=== PATIENT | female | born 1980 | race Caucasian/White ===

== ENCOUNTER 2016-10-12 11:12 | Emergency (ER) | payer SELFPAY ==
[2016-10-12 11:21] VITALS: BP 106/76; BMI 22.1
--- NOTE | 2016-10-12 12:01 | DR.GENAD ---
HPI - PCP Primary Care Physician: kenney - Complaint/Symptoms Chief Complaint Doctors Comments: Patient presents with complaint of hoarseness for two weeks. Denies fever, vomitng or diarrhea. Chief Complaint:: patient stated her lymphnodes have been swollen for about 2 weeks. she stated she has not seen a doctor for her lymphnodes. Self Treatment fo Chief Complaint: patient stated she did smoke some thc about 2 weeks ago. 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 - Family History History of Family Medical Conditions: Yes Family Medical History: Diabetes Mellitus, Cancer - Social History Does patient currently use any type of tobacco product: Yes Have you used tobacco products in the last 12 months: Yes Type of Tobacco Use: Cigarettes How many years tobacco product used: 15 Does any household member use tobacco: No Alcohol Use: None Do you use any recreational Drugs:: No Lives With: Family Lives Where: Home - infectious screening In the last 2 months have you had wt loss of >10#?: NO Have you had fever, night sweats or hemotysis?: No Have you traveled outside the country in the last 6 months?: No Isolation: Standard ROS - Review of Systems Constitutional: No Symptoms Reported. negative: Chills Eyes: No Symptoms Reported ENTM: No Symptoms Reported Respiratoy: Non-Productive Cough Cardiovascular: No Symptoms Reported Gastrointestinal/Abdominal: No Symptoms Reported Genitourinary: No Symptoms Reported Neurological: No Symptoms Reported Musculoskeletal: No Symptoms Reported Integumentary: No Symptoms Reported Hematologic/Lymphatic: No Symptoms Reported Endocrine: No Symptoms Reported Psychiatric: No Symptoms Reported All Other Systems: Reviewed and Negative PE - Vital Signs Vitals: Temperature 97.7 F Pulse Rate 64 Respiratory Rate 16 Blood Pressure 106/76 O2 Sat by Pulse Oximetry 99 - General Limitations: No Limitations General Appearance: Alert, In No Apparent Distress - Head Head Exam: Normal Inspection, Atraumatic - Eyes Eye exam: Normal Appearance, PERRL, EOMI - ENT ENT Exam: Normal Exam, Normal Oropharynx, Mucous Membranes Moist TM/Canal Exam: Bilateral Normal Nose Exam: Normal Nose Exam. negative: Sinus Tenderness, Nasal Deviation Mouth Exam: Normal Inspection. negative: Drooling, Trismus Throat Exam: Normal Inspection. negative: Tonsillar Erythema, Tonsillomegaly, Tonsillar Exudate, R Peritonsillar Mass, L Peritonsillar Mass - Neck Neck Exam: Normal Inspection, Full ROM - Chest Chest Inspection: Normal Inspection - Respiratory Respiratory Exam: Normal Lung Sounds Bilat Respiratory Exam: Bilateral Clear to Auscultation - Cardiovascular Cardiovascular Exam: Regular Rate, Normal Rhythm - Abdominal Exam Abdominal Exam: Normal Inspection, Normal Bowel Sounds Abdominal Tenderness: negative: RUQ, RLQ, LUQ, LLQ, Epigastrium, Suprapubic, Diffuse, Mild, Moderate, Severe, Other - Extremities Extremities Exam: Normal Inspection, Full ROM - Back Back Exam: Normal Inspection, Full ROM - Neurologic Neurological Exam: Alert, Oriented X3, CN II-XII Intact - Psychiatric Psychiatric Exam: Normal Affect - Skin Skin Exam: Warm, Dry, Intact - Diagnosis Discharge Problem: Viral illness - Discharge Plan Condition: Stable - Follow ups/Referrals Follow ups/Referrals: PALAK PRUITT [Primary Care Provider] - 3 days - Instructions
== END 2016-10-12 12:36 | disposition home or self-care (01) ==
LOC: ER 11:50
DX: B34.9 Viral infection, unspecified (principal)
CPT/HCPCS: 99281; 99282

== ENCOUNTER 2017-06-05 09:52 | Emergency (ER) | payer SELFPAY ==
[2017-06-05 09:57] VITALS: BP 126/85; BMI 22.0
--- NOTE | 2017-06-05 10:45 | DR.GENAD ---
HPI - PCP Primary Care Physician: lesley - HPI Comment HPI Comment: NO FEVER. TAKING TYLENOL FOR PAIN. TOOK MACROBID FOR UTI FOR PAIN, NO IMPROVEMENT. - Complaint/Symptoms Chief Complaint Doctors Comments: INCREASING RLQ ABDOMINAL PAIN WITH NAUSEA FOR 8 DAYS. 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 - Family History History of Family Medical Conditions: Yes Family Medical History: Diabetes Mellitus, Cancer - Social History Does patient currently use any type of tobacco product: Yes Have you used tobacco products in the last 12 months: Yes Type of Tobacco Use: Cigarettes How many years tobacco product used: 18 Does any household member use tobacco: Yes Alcohol Use: None Do you use any recreational Drugs:: Yes (weed) Lives With: Family Lives Where: Home - infectious screening In the last 2 months have you had wt loss of >10#?: YES Have you had fever, night sweats or hemotysis?: No Have you traveled outside the country in the last 6 months?: No Isolation: Standard ROS - Review of Systems Constitutional: No Symptoms Reported. negative: Chills, Fever Eyes: negative: Eye Pain, Discharge ENTM: No Symptoms Reported. negative: Ear Pain, Nose Discharge, Nose Congestion , Throat Pain Respiratoy: Non-Productive Cough Cardiovascular: No Symptoms Reported Gastrointestinal/Abdominal: Abdominal Pain, Nausea Genitourinary: negative: Dysuria, Frequency, Hematuria Neurological: Weakness. negative: Headache, Dizziness Musculoskeletal: No Symptoms Reported Integumentary: No Symptoms Reported Hematologic/Lymphatic: No Symptoms Reported Endocrine: No Symptoms Reported All Other Systems: Reviewed and Negative PE - Vital Signs Vitals: Temperature 97.6 F Pulse Rate 78 Respiratory Rate 18 Blood Pressure 126/85 O2 Sat by Pulse Oximetry 98 - General Limitations: No Limitations General Appearance: Alert - Head Head Exam: Normal Inspection - Eyes Eye exam: Normal Appearance - ENT ENT Exam: Normal External Ear Exam External Ear Exam: Normal External Inspection TM/Canal Exam: Bilateral Normal Nose Exam: Normal Nose Exam Mouth Exam: Normal Inspection Throat Exam: Normal Inspection - Neck Neck Exam: Trachea Midline - Chest Chest Inspection: Symmetric Chest Wall Rise - Respiratory Respiratory Exam: Normal Lung Sounds Bilat Respiratory Exam: Bilateral Clear to Auscultation - Cardiovascular Cardiovascular Exam: Regular Rate, Normal Rhythm, Normal Heart Sounds - Abdominal Exam Abdominal Exam: Normal Bowel Sounds, Soft, Tenderness Abdominal Tenderness: RLQ, Moderate - Extremities Extremities Exam: Normal Inspection - Back Back Exam: Normal Inspection - Neurologic Neurological Exam: Alert, Oriented X3 - Psychiatric Psychiatric Exam: Normal Affect, Normal Mood - Skin Skin Exam: Normal Color MDM - Differential Diagnosis Differential Diagnosis: RLQ ABDOMINAL PAIN, APPENDICITIS, UTI, KIDNEY STONE Course - Treatment Treatment: SEE ORDERS. - Education/Counseling Education/Counseling: Patient, Education Educated On: Treatment, Diagnosis, Needs for Follow Up ROR - Labs Reviewed Laboratory Results Reviewed?: Yes Result Diagrams: 06/05/17 10:55 06/05/17 10:55 Laboratory: WBC 12.6 X10^3/uL (3.6-10.0) H 06/05/17 10:55 RBC 4.47 X10^6/uL (3.5-5.4) 06/05/17 10:55 Hgb 13.7 g/dL (12.0-16.0) 06/05/17 10:55 Hct 40.3 % (36.0-47.0) 06/05/17 10:55 MCV 90.3 fL (80.0-100.0) 06/05/17 10:55 MCH 30.7 pg (27.0-34.0) 06/05/17 10:55 MCHC 34.0 g/dL (33.0-35.0) 06/05/17 10:55 RDW 13.4 % (11.6-16.5) 06/05/17 10:55 Plt Count 232 X10^3/uL (150.0-450.0) 06/05/17 10:55 MPV 8.3 fL (7.4-11.0) 06/05/17 10:55 Neut % 66.9 % (42.0-75.0) 06/05/17 10:55 Lymph % 23.1 % (21.0-51.0) 06/05/17 10:55 [place] % 6.8 % (0.0-13.0) 06/05/17 10:55 Eos % 2.3 % (0.9-2.9) 06/05/17 10:55 Baso % 0.9 % (0.2-1.0) 06/05/17 10:55 Neut # 8.4 x10^3/uL (2.2-4.8) H 06/05/17 10:55 Lymph # 2.9 X10^3/uL (1.3-2.9) 06/05/17 10:55 [place] # 0.9 x10^3/uL (0.3-0.8) H 06/05/17 10:55 Eos # 0.3 x10^3/uL (0.0-0.2) H 06/05/17 10:55 Baso # 0.1 X10^3/uL (0.0-0.1) 06/05/17 10:55 Absolute Nucleated RBC 0.0 /100WBC 06/05/17 10:55 Sodium 139 mmol/L (136-145) 06/05/17 10:55 Corrected Sodium TNP 06/05/17 10:55 Potassium 4.2 mmol/L (3.5-5.1) 06/05/17 10:55 Chloride 104 mmol/L (98-107) 06/05/17 10:55 Carbon Dioxide 24.9 mmol/L (21-32) 06/05/17 10:55 BUN 7 mg/dL (7-18) 06/05/17 10:55 Creatinine 0.76 mg/dL (0.55-1.02) 06/05/17 10:55 Est GFR (MDRD) Af Amer > 60 (>60) 06/05/17 10:55 Est GFR (MDRD) Non-Af > 60 (>60) 06/05/17 10:55 Glucose 83 mg/dL (65-99) 06/05/17 10:55 Calcium 8.6 mg/dL (8.5-10.1) 06/05/17 10:55 Corrected Calcium TNP 06/05/17 10:55 Total Bilirubin 0.20 mg/dL (0.2-1.0) 06/05/17 10:55 AST 14 Units/L (15-37) L 06/05/17 10:55 ALT 17 Units/L (12-78) 06/05/17 10:55 Alkaline Phosphatase 82 Units/L (46-116) 06/05/17 10:55 Total Protein 7.0 g/dL (6.4-8.2) 06/05/17 10:55 Albumin 3.4 g/dL (3.4-5.0) 06/05/17 10:55 Globulin 3.6 g/dL (2.5-4.5) 06/05/17 10:55 Albumin/Globulin Ratio 0.9 Ratio (1.1-2.1) L 06/05/17 10:55 Amylase 36 Units/L (25-115) 06/05/17 10:55 Lipase 58 Units/L (73-393) L 06/05/17 10:55 Specimen Type Random urine 06/05/17 11:13 Urine Color Yellow (YELLOW) 06/05/17 11:13 Urine Appearance Clear (CLEAR) 06/05/17 11:13 Urine pH 6.0 (5.0 - 8.0) 06/05/17 11:13 Ur Specific Onward 1.015 (1.000-1.030) 06/05/17 11:13 Urine Protein Negative (NEGATIVE) 06/05/17 11:13 Urine Glucose (UA) Negative (NEGATIVE) 06/05/17 11:13 Urine Ketones Negative (NEGATIVE) 06/05/17 11:13 Urine Occult Blood 2+ (NEGATIVE) 06/05/17 11:13 Urine Nitrite Negative (NEGATIVE) 06/05/17 11:13 Urine Bilirubin Negative (NEGATIVE) 06/05/17 11:13 Urine Urobilinogen Normal (NORMAL) 06/05/17 11:13 Ur Leukocyte Esterase 3+ (NEGATIVE) 06/05/17 11:13 Urine RBC 5-10 /HPF (NEGATIVE) 06/05/17 11:13 Urine WBC 40-50 /HPF (NEGATIVE) 06/05/17 11:13 Ur Squamous Epith Cells Moderate /HPF (NEGATIVE) 06/05/17 11:13 Urine Bacteria Trace /HPF (NEGATIVE) 06/05/17 11:13 Urine Trichomonas Few /HPF (NEGATIVE) 06/05/17 11:13 Ur Culture Indicated? No/not indicated 06/05/17 11:13 - XRAY XRAY Interpreted by: Radiologist XRAY Findings: REPORT DISCUSS WITH PATIENT. - Diagnosis Discharge Problem: RLQ abdominal pain UTI (urinary tract infection) Qualifiers: Urinary tract infection type: site unspecified Hematuria presence: with hematuria Qualified Code(s): N39.0 - Urinary tract infection, site not specified ; R31.9 - Hematuria, unspecified; R31.9 - Hematuria, unspecified Ovarian cyst Qualifiers: Laterality: bilateral Qualified Code(s): N83.201 - Unspecified ovarian cyst, right side; N83.202 - Unspecified ovarian cyst, left side; N83.202 - Unspecified ovarian cyst, left side - Discharge Plan Disposition: HOME, SELF-CARE Condition: Stable Prescriptions: Ciprofloxacin HCl [CIPRO 500 MG TAB *] 500 mg PO Q12H #20 tab Ibuprofen [MOTRIN TAB 600 MG *] 600 mg PO TID PRN #90 tab PRN Reason: Pain/Inflammation Tramadol HCl 50 mg PO Q8H PRN #15 tablet PRN Reason: - Follow ups/Referrals Follow ups/Referrals: PALAK PRUITT [Primary Care Provider] - 3 days - Instructions Instructions: Urinary Tract Infection, Adult, [id number], Abdominal Pain, Adult, [id number]
[2017-06-05 11:06] LABS: BASOPHILS # (AUTO) 0.1 X10^3/uL (0.0-0.1); BASOPHILS % (AUTO) 0.9 % (0.2-1.0); EOSINOPHILS # (AUTO) 0.3 x10^3/uL (0.0-0.2); EOSINOPHILS % (AUTO) 2.3 % (0.9-2.9); HEMATOCRIT 40.3 % (36.0-47.0); HEMOGLOBIN 13.7 g/dL (12.0-16.0); LYMPHOCYTES # (AUTO) 2.9 X10^3/uL (1.3-2.9); LYMPHOCYTES % (AUTO) 23.1 % (21.0-51.0); MEAN CORPUSCULAR HEMOGLOBIN 30.7 pg (27.0-34.0); MEAN CORPUSCULAR VOLUME 90.3 fL (80.0-100.0); MEAN PLATELET VOLUME 8.3 fL (7.4-11.0); MONOCYTES # (AUTO) 0.9 x10^3/uL (0.3-0.8); MONOCYTES % (AUTO) 6.8 % (0.0-13.0); NEUTROPHILS # (AUTO) 8.4 x10^3/uL (2.2-4.8); NEUTROPHILS % (AUTO) 66.9 % (42.0-75.0); PLATELET COUNT 232 X10^3/uL (150.0-450.0); RED BLOOD COUNT 4.47 X10^6/uL (3.5-5.4); RED CELL DISTRIBUTION WIDTH 13.4 % (11.6-16.5); WHITE BLOOD COUNT 12.6 X10^3/uL (3.6-10.0)
[2017-06-05] MEDS ORDERED: MORPHINE SULFATE INJ 4 MG IVP ONE (11:12)
[2017-06-05] MEDS ORDERED: ZOFRAN INJ 4 MG VIAL IVP ONE (11:12)
[2017-06-05] MEDS ORDERED: MORPHINE SULFATE INJ 4 MG ONE (11:14)
[2017-06-05] MEDS ORDERED: ZOFRAN INJ 4 MG VIAL ONE (11:14)
[2017-06-05 11:16] LABS: ALANINE AMINOTRANSFERASE 17 Units/L (12-78); ALBUMIN 3.4 g/dL (3.4-5.0); ALKALINE PHOSPHATASE 82 Units/L (46-116); AMYLASE 36 Units/L (25-115); ASPARTATE AMINO TRANSFERASE 14 Units/L (15-37); BLOOD UREA NITROGEN 7 mg/dL (7-18); CALCIUM 8.6 mg/dL (8.5-10.1); CARBON DIOXIDE 24.9 mmol/L (21-32); CHLORIDE 104 mmol/L (98-107); CREATININE 0.76 mg/dL (0.55-1.02); LIPASE 58 Units/L (73-393); SODIUM 139 mmol/L (136-145); eGFR BLACK RACES > 60 (>60); eGFR NON BLACK RACES > 60 (>60)
[2017-06-05 11:31] LABS: BILIRUBIN,URINE NEGATIVE (NEGATIVE); BLOOD/HEMOGLOBIN,URINE 2+ (NEGATIVE); GLUCOSE, URINE NEGATIVE (NEGATIVE); KETONES,URINE NEGATIVE (NEGATIVE); LEUKOCYTE ESTERASE ,URINE 3+ (NEGATIVE); NITRITES,URINE NEGATIVE (NEGATIVE); PROTEIN,URINE NEGATIVE (NEGATIVE); UROBILINOGEN,URINE NORMAL (NORMAL)
[2017-06-05 11:42] LABS: COLOR,URINE YELLOW (YELLOW)
[2017-06-05 11:43] LABS: APPEARANCE,URINE CLEAR (CLEAR); BACTERIA,URINE TRACE /HPF (NEGATIVE); SQUAMOUS EPITHELIAL CELL,UR MODERATE /HPF (NEGATIVE); TRICHOMONAS,URINE FEW /HPF (NEGATIVE)
--- NOTE | 2017-06-05 14:45 | CT ---
HISTORY: Right lower quadrant pain with nausea today. Study: CT abdomen and pelvis with IV and oral contrast Comparison: No priors Technique: Multiple axial images of the abdomen and pelvis were obtained from the lung bases to the pubic symphy sis during the administration of IV contrast. Oral contrast materials were also given. Sagittal and c oronal images are also reviewed. Dose reduction techniques utilized automatic exposure control. Findings: The visualized portions of the lung bases are unremarkable. The liver is prominent measuring 19.75 cm in length. No evidence of liver mass or ductal ectasia is seen. The spleen, pancreas, kidneys, and a drenal glands are unremarkable in their CT appearance. The gallbladder is unremarkable in its CT appe arance. No significant mesenteric lymphadenopathy or stranding can be observed. No free fluid or fr ee air is seen within the abdomen. No bowel wall thickening or bowel dilatation is present. Appendix is not well seen. No pericecal mass or fluid collection is seen. The colon is unremarkable. Specif ically, there is no diverticulosis noted within the sigmoid colon. The urinary bladder is grossly unr emarkable. The uterus is normal in size. Multiple bilateral adnexal cysts are present with suggestion of a small amount of free cul-de-sac fluid. Pelvic ultrasound may be of benefit. The bony structures are grossly intact. IMPRESSION: Slightly prominent liver. No mass or ductal ectasia is seen. Appendix is not discretely identified. No pericecal mass or fluid is seen. Multiple bilateral adnexal cysts. There is a suggestion of a small amount of free cul-de-sac fluid. P elvic ultrasound may be of benefit. The findings may all be physiologic Reported By:
== END 2017-06-05 15:34 | disposition home or self-care (01) ==
LOC: ER 10:07
DX: N39.0 Urinary tract infection, site not specified (principal); R31.9 Hematuria, unspecified; N83.201 Unspecified ovarian cyst, right side; N83.202 Unspecified ovarian cyst, left side; R10.31 Right lower quadrant pain
CPT/HCPCS: 36415; 74177; 80053; 81001; 82150; 83690; 85025; 96365; 96374; 96375; 99283; A4222; J2270; J2405